=== PATIENT | female | born 1980 | race Caucasian/White ===

== ENCOUNTER 2018-02-13 20:06 | Emergency (ER) | payer OTHER ==
[~2018-02-13] VITALS: Ht 152.4 cm; Wt 81.8 kg
[2018-02-13 20:06] VITALS: BP 136/96; PULSE 114; RESP 18; TEMP 97.9; O2SAT 97
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
[2018-02-13] MEDS ORDERED: ZOFR4TAB3 SL (20:42)
[2018-02-13] MEDS ORDERED: CEPH-460 PO (20:42)
[2018-02-13] MEDS ORDERED: ESTR3TAB PO (20:42)
[2018-02-13] MEDS ORDERED: HYDR-3516 PO (20:42)
[2018-02-13] MEDS ORDERED: ONDANSETRON HCL 4 MG/2 ML VIAL IV ONE (20:45)
[2018-02-13 20:56] LABS: AUTOMATED NEUTROPHIL # 12.2 TH/MM3 (1.8-7.7); BASOPHIL % 0.3 % (0.0-2.0); EOSINOPHIL % 0.1 % (0.0-4.0); HEMATOCRIT 37.2 % (35.0-46.0); HEMOGLOBIN 12.3 GM/DL (11.6-15.3); LYMPH % 6.9 % (9.0-44.0); MEAN CELL VOLUME 82.5 FL (80.0-100.0); MEAN CORPUSCULAR HEMOGLOBIN 27.1 PG (27.0-34.0); MEAN CORPUSCULAR HGB CONC 32.9 % (32.0-36.0); MEAN PLATELET VOLUME 7.8 FL (7.0-11.0); MONO % 6.6 % (0.0-8.0); MONOCYTE # 0.9 TH/MM3 (0-0.9); NEUT % 86.1 % (16.0-70.0); PLATELET COUNT 237 TH/MM3 (150-450); RED BLOOD COUNT 4.52 MIL/MM3 (4.00-5.30); RED CELL DISTRIBUTION WIDTH 13.1 % (11.6-17.2); WHITE BLOOD COUNT 14.1 TH/MM3 (4.0-11.0)
[2018-02-13 21:07] LABS: CALCIUM 8.5 MG/DL (8.5-10.1)
[2018-02-13 21:11] LABS: CREATININE 1.1 MG/DL (0.50-1.00)
[2018-02-13] MEDS ORDERED: PROCHLORPERAZINE INJ 10 MG/2 ML VIAL IV PUSH ONE (21:15)
[2018-02-13] MEDS ORDERED: PROC10TA PO (21:45)
[2018-02-13 22:02] VITALS: BP 127/75; PULSE 108; RESP 16; O2SAT 96
== END 2018-02-13 22:20 | disposition home or self-care (01) ==
LOC: PHED 20:06
DX: L76.22 Postprocedural hemorrhage of skin and subcutaneous tissue following other procedure (principal); R11.0 Nausea; Y83.8 Other surgical procedures as the cause of abnormal reaction of the patient, or of later complication, without mention of misadventure at the time of the procedure
CPT/HCPCS: 80048; 85025; 96374; 96375; 99284; J0780; J2405

== ENCOUNTER 2018-03-04 10:11 | Emergency (ER) | payer OTHER ==
[~2018-03-04] VITALS: Ht 152.4 cm; Wt 100.0 kg
[~2018-03-04 10:11] MED LIST: CEPH-460 PO; ESTR3TAB PO; HYDR-3516 PO; PROC10TA PO; ZOFR4TAB3 SL
[2018-03-04 10:15] VITALS: BP 167/100; PULSE 99; RESP 16; TEMP 98.7; O2SAT 97
[2018-03-04 10:55] LABS: BASOPHIL # 0.1 TH/MM3 (0-0.2); BASOPHIL % 1.1 % (0.0-2.0); EOSINOPHIL # 0.1 TH/MM3 (0-0.4); EOSINOPHIL % 1.6 % (0.0-4.0); HEMATOCRIT 39.7 % (35.0-46.0); HEMOGLOBIN 13.1 GM/DL (11.6-15.3); LYMPH % 49.2 % (9.0-44.0); LYMPHOCYTE # 2.3 TH/MM3 (1.0-4.8); MEAN CELL VOLUME 82.7 FL (80.0-100.0); MEAN CORPUSCULAR HEMOGLOBIN 27.4 PG (27.0-34.0); MEAN CORPUSCULAR HGB CONC 33.1 % (32.0-36.0); MEAN PLATELET VOLUME 7.5 FL (7.0-11.0); MONO % 7.2 % (0.0-8.0); MONOCYTE # 0.4 TH/MM3 (0-0.9); NEUT % 40.9 % (16.0-70.0); PLATELET COUNT 329 TH/MM3 (150-450); WHITE BLOOD COUNT 4.9 TH/MM3 (4.0-11.0)
[2018-03-04] MEDS ORDERED: DIATRIZOATE MEGLUM/DIATRIZOATE SOD 9 ML CUP ONE (10:55)
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
[2018-03-04 10:56] LABS: BILIRUBIN, URINE NEG (NEG); BLOOD, URINE NEG (NEG); GLUCOSE,URINE NEG (NEG); KETONE, URINE NEG (NEG); NITRITE,URINE NEG (NEG); URINE COLOR YELLOW (YELLW/STRAW); URINE LEUKOCYTE ESTERASE NEG (NEG)
[2018-03-04 11:00] LABS: SQUAMOUS EPITHELIAL CELL URINE > 8 /hpf (0-5); WBC, URINE 0-2 /hpf (0-5)
[2018-03-04 11:04] LABS: CHLORIDE 104 MEQ/L (98-107); SODIUM (NA) 137 MEQ/L (136-145)
[2018-03-04 11:07] LABS: CALCIUM 9.6 MG/DL (8.5-10.1)
[2018-03-04 11:08] LABS: ALBUMIN 4.3 GM/DL (3.4-5.0); BICARBONATE 24.5 MEQ/L (21.0-32.0); BLOOD UREA NITROGEN 20 MG/DL (7-18); GLUCOSE,RANDOM 132 MG/DL (74-106)
[2018-03-04 11:11] LABS: ALT (GPT) 105 U/L (10-53); AST (GOT) 74 U/L (15-37); CREATININE 0.75 MG/DL (0.50-1.00); GLOMERULAR FILTRATION RATE 88 ML/MIN (>89)
[2018-03-04 11:12] LABS: TOTAL BILIRUBIN ADULT 0.4 MG/DL (0.2-1.0)
[2018-03-04 11:14] LABS: ALKALINE PHOSPHATASE 76 U/L (45-117)
[2018-03-04] MEDS ORDERED: IOHEXOL 350 MG/ML 10 ML VIAL (for RAD DIAG) IVCONTRAST ONE (11:57)
--- NOTE | 2018-03-04 12:19 | RADRPT ---
EXAM DATE/TIME: 03/04/2018 11:48 [facility] COMPARISON: No previous studies available for comparison. INDICATIONS : Mid abdominal pain with nausea and loose stool. IV CONTRAST: 95 cc Omnipaque 350 (iohexol) IV ORAL CONTRAST: Prescribed oral contrast ingested. RADIATION DOSE: 22.60 CTDIvol (mGy) MEDICAL HISTORY : Hypercholesterolemia. SURGICAL HISTORY : Hysterectomy. ENCOUNTER: Initial ACUITY: 1 week PAIN SCALE: 6/10 LOCATION: pelvis abdomen TECHNIQUE: Volumetric scanning of the abdomen and pelvis was performed. Using automated exposure control and ad justment of the mA and/or kV according to patient size, radiation dose was kept as low as reasonably achievable to obtain optimal diagnostic quality images. DICOM format image data is available electro nically for review and comparison. FINDINGS: LOWER LUNGS: The visualized lower lungs are clear. LIVER: The liver demonstrates severe decreased density with sparing around the gallbladder fossa. No focal l esion is seen. Hepatic vasculature demonstrates no abnormality. The liver is enlarged measuring 23.7 cm. There is no dilation of the biliary tree. No calcified gallstones. SPLEEN: Normal size without lesion. PANCREAS: Within normal limits. KIDNEYS: Normal in size and shape. There is no mass, stone or hydronephrosis. ADRENAL GLANDS: Within normal limits. VASCULAR: There is no aortic aneurysm. BOWEL/MESENTERY: The stomach, small bowel, and colon demonstrate no acute abnormality. There is no free intraperitone al air or fluid. Appendix is normal. ABDOMINAL WALL: There is a subcutaneous linear stranding along the flanks and anterior abdominal wall which may be re lated to prior plastic surgery/liposuction. There are are bilateral subcutaneous soft tissue densitie s along the lateral aspect of the inferior chest wall bilaterally measuring approximately 6.4 x 1.9 c m on the right and 5.6 cm on the left. There is a small hernia in the midline superior to the umbilic us which contains a portion of the anterior wall of the mid transverse colon. RETROPERITONEUM: There is no lymphadenopathy. BLADDER: No wall thickening or mass. REPRODUCTIVE: Uterus is absent. No adnexal abnormality is seen. INGUINAL: There is no lymphadenopathy or hernia. MUSCULOSKELETAL: There is no acute osseous abnormality seen. Bilateral breast implants are present with left breast im plant having an asymmetric appearance. CONCLUSION: 1. No acute finding is identified to explain the clinical symptoms. There is a small midline anterior abdominal wall hernia containing a portion of the mid transverse colon. 2. Severe hepatomegaly with steatosis. 3. Plastic surgery changes include bilateral breast implants with left implant having an asymmetric a ppearance. The subcutaneous densities along the lateral chest wall bilaterally and along the flanks a nd anterior abdominal wall are most likely related to prior plastic surgery. Sandro Gorman MD on March 04, 2018 at 12:11 Board Certified Radiologist. This report was verified electronically.
[2018-03-04 13:07] VITALS: BP 173/81; PULSE 95; RESP 16; O2SAT 98
== END 2018-03-04 13:14 | disposition home or self-care (01) ==
LOC: PHED 10:11
DX: K43.9 Ventral hernia without obstruction or gangrene (principal); J45.909 Unspecified asthma, uncomplicated; E78.00 Pure hypercholesterolemia, unspecified; Z90.710 Acquired absence of both cervix and uterus
CPT/HCPCS: 74177; 80053; 81001; 84703; 85025; 99284; Q9963; Q9967